=== PATIENT | male | born 1980 | race Two or more races ===

== ENCOUNTER 2017-01-31 10:26 | Emergency (ER) | payer MEDICAID ==
[~2017-01-31] VITALS: Ht 165.1 cm; Wt 83.5 kg
--- NOTE | 2017-01-31 10:35 | NUR ---
CALLED FOR TRIAGE, NO RESPONSE, PHYSICALLY NOT IN WAITING ROOM
[2017-01-31 10:39] VITALS: BP 129/67
[2017-01-31] MEDS ORDERED: POVIDONE-IODINE OINT 28.4 GM TUBE TP ONE (11:30)
[2017-01-31] MEDS ORDERED: LIDOCAINE 1%-EPI 1:100,000 50 ML VIAL IJ ONE (11:30)
[2017-01-31] MEDS ORDERED: LIDOCAINE /MPF 1% VIAL 5 ML VIAL ONE (11:36)
== END 2017-01-31 12:00 | disposition home or self-care (01) ==
LOC: ER 10:28
DX: L02.31 Cutaneous abscess of buttock (principal); L40.9 Psoriasis, unspecified
CPT/HCPCS: 10060; 99283; A4606; A6402; A6403; J3490; Z7610